=== PATIENT | male | born 1990 | race Caucasian/White ===

== ENCOUNTER 2019-07-25 12:34 | Inpatient (IN) | payer MEDICARE, MEDICAID ==
[~2019-07-25] VITALS: Ht 182.9 cm; Wt 79.7 kg
[2019-07-25] MEDS ORDERED: ONDANSETRON ODT 4 MG PO PRN (13:00)
[2019-07-25] MEDS ORDERED: DOCUSATE 100 MG CAPSULE PO PRN (13:00)
[2019-07-25] MEDS ORDERED: BISACODYL 10 MG SUPP PR PRN (13:00)
[2019-07-25] MEDS ORDERED: POLYETHYLENE GLYCOL 17 GM PACKET PO PRN (13:00)
[2019-07-25] MEDS ORDERED: ACETAMINOPHEN 325 MG TABLET PO PRN (13:00)
[2019-07-25 15:55] VITALS: BP 113/67
[2019-07-25] MEDS ORDERED: QUET100T4 PO ×2 (15:55→15:57)
[2019-07-25 16:03] LABS: MICROSCOPIC NOT IND
[2019-07-25 16:19] LABS: CULTURE INDICATED? NO
[2019-07-25] MEDS: NICOTINE 21 MG/24 HR PATCH.TD24 TD SCH (17:16)
[2019-07-25] MEDS ORDERED: FLU VAC QS 19-20(4YR UP)CEL/PF 0.5 ML IM-VACC ONE (18:30)
[2019-07-25 19:13] VITALS: BP 125/73
[2019-07-25] MEDS: QUETIAPINE 100MG TABLET PO SCH (20:52)
[2019-07-25] MEDS: ACAMPROSATE 333 MG TABLET.DR PO SCH (20:52)
[2019-07-26 06:37] LABS: CHOL/HDL RATIO 2.9
[2019-07-26 06:38] LABS: FREE T4 (FREE THYROXINE) 0.99 ng/dL (0.76-1.46); LDL/HDL RATIO 1.4 (0.5-3.0)
[2019-07-26 07:02] VITALS: BP 100/66
[2019-07-26] MEDS: QUETIAPINE 100MG TABLET PO SCH ×2 (08:57→20:41)
[2019-07-26] MEDS: ACAMPROSATE 333 MG TABLET.DR PO SCH ×3 (08:57→20:41)
[2019-07-26] MEDS: NICOTINE 21 MG/24 HR PATCH.TD24 TD SCH (08:57)
[2019-07-26 18:08] LABS: BASOPHILS # (AUTO) 0.03 x10^3/uL (0-0.1); BASOPHILS % (AUTO) 0 % (0-1); EOSINOPHILS # (AUTO) 0.43 x10^3/uL (0-0.4); EOSINOPHILS % (AUTO) 4 % (1-7); LYMPHOCYTES # (AUTO) 2.54 x10^3/uL (1-3.4); LYMPHOCYTES % (AUTO) 22 % (22-44); MD NO; MEAN CORPUSCULAR HEMOGLOBIN 31.4 pg (27.5-34.5); MEAN CORPUSCULAR HGB CONC 32.6 g/dL (33.2-36.2); MEAN CORPUSCULAR VOLUME 96.2 fL (81-97); MEAN PLATELET VOLUME 8.7 fL (7.4-10.4); MONOCYTES # (AUTO) 0.65 x10^3/uL (0.2-0.8); MONOCYTES % (AUTO) 6 % (2-9); NEUTROPHILS # (AUTO) 7.86 x10^3/uL (1.8-6.8); NEUTROPHILS % (AUTO) 68 % (42-75); PLATELET COUNT 281 x10^3/uL (130-400); RED CELL DISTRIBUTION WIDTH 13.5 % (9.4-14.8)
[2019-07-26 18:19] LABS: ANION GAP 2 mmol/L (5-15); CALCIUM 8.5 mg/dL (8.5-10.1); CHLORIDE 107 mmol/L (98-107); CREATININE 0.86 mg/dL (0.7-1.3)
[2019-07-26 19:28] VITALS: BP 107/75
[2019-07-26] MEDS: RISPERIDONE 1 MG TABLET PO SCH (20:42)
[2019-07-26] MEDS: LORazepam 1MG TABLET PO PRN (22:51)
[2019-07-27] MEDS: ACAMPROSATE 333 MG TABLET.DR PO SCH ×3 (08:19→20:10)
[2019-07-27] MEDS: RISPERIDONE 1 MG TABLET PO SCH ×2 (08:19→20:10)
[2019-07-27] MEDS: QUETIAPINE 100MG TABLET PO SCH ×2 (08:20→20:10)
[2019-07-27] MEDS: NICOTINE 21 MG/24 HR PATCH.TD24 TD SCH (08:22)
[2019-07-27] MEDS: LORazepam 1MG TABLET PO PRN ×2 (09:11→20:12)
[2019-07-27 19:54] VITALS: BP 125/84
[2019-07-28 07:50] VITALS: BP 105/71
[2019-07-28] MEDS: ACAMPROSATE 333 MG TABLET.DR PO SCH (08:27)
[2019-07-28] MEDS: QUETIAPINE 100MG TABLET PO SCH (08:27)
[2019-07-28] MEDS: RISPERIDONE 1 MG TABLET PO SCH (08:28)
[2019-07-28] MEDS: NICOTINE 21 MG/24 HR PATCH.TD24 TD SCH (08:29)
== END 2019-07-28 10:20 | DRG 885 ==
LOC: 3E 15:51
PROVIDERS: ADMIT Psychiatry & Neurology Psychosomatic Medicine; ATTEND Psychiatry & Neurology Psychosomatic Medicine
DX: F25.0 Schizoaffective disorder, bipolar type (principal); F10.20 Alcohol dependence, uncomplicated; Y90.9 Presence of alcohol in blood, level not specified; Z59.0 Homelessness; F17.200 Nicotine dependence, unspecified, uncomplicated; Z53.29 Procedure and treatment not carried out because of patient's decision for other reasons
CPT/HCPCS: 36415; 71045; 80048; 80061; 81003; 82140; 82607; 84439; 84443; 85025; 90674; 93005